=== PATIENT | male | born 1995 | race Caucasian/White ===

== ENCOUNTER 2017-07-17 19:34 | Emergency (ER) | payer OTHER ==
[2017-07-17 19:49] VITALS: RESP 18; TEMP 98.2
--- NOTE | 2017-07-17 20:20 | EDPHY ---
H & P Smoking Status: Smoker current status UNK Time Seen by Provider: 07/17/17 20:12 HPI/ROS: CHIEF COMPLAINT: "I had a panic attack" HISTORY OF PRESENT ILLNESS: 22-year-old male history of intermittent anxiety and panic attacks, waiting to be seen by Psychiatry at the [facility] states that he had a self-described panic attack earlier this evening which has now by and large resolved. He drove himself to the ER. No suicidal homicidal ideation. No alcohol or drug use. PHYSICAL EXAM (Prior to examination, patient consented to physical exam, hands were washed and my usual and customary physical exam procedures followed) 1) GENERAL: Well-developed, well-nourished, alert and oriented. Appears to be in no acute distress. 2) HEAD: Normocephalic 3) HEENT: sclera anicteric 4) LUNGS: Breathing comfortably. Clear bilaterally (Chitra Bates) Constitutional: Initial Vital Signs Temperature (C) 36.8 C 07/17/17 19:46 Heart Rate 103 H 07/17/17 19:46 Respiratory Rate 18 07/17/17 19:46 Blood Pressure 178/99 H 07/17/17 19:46 O2 Sat (%) 97 07/17/17 19:46 O2 Delivery Mode Room Air Allergies/Adverse Reactions: No Known Allergies Allergy (Unverified 07/17/17 19:45) Home Medications: Medication Instructions Recorded LORazepam [Ativan 1 mg (RX)] 1 mg PO Q6 PRN #3 tab 07/17/17 MDM/Departure - MDM Medications Given: Discontinued Medications Lorazepam (Ativan) 1 mg PO EDNOW ONE Stop: 07/17/17 21:12 Last Admin: 07/17/17 21:28 Dose: Not Given ED Course/Re-evaluation: This patient's symptoms have improved without intervention. He drove himself to the ER. I am giving him a prescription for Ativan 1 mg #3 tablets and recommend he follow up with mental health services at the [facility]. he does not meet criteria for an M1 hold. Care of patient under supervision of secondary supervising physician Dr Courtney . ( Chitra Bates Pearl) The patient was evaluated and managed by the Physician Licensed Investment Sales Assistant. My co- signature indicates that I have reviewed this chart and I agree with the findings and plan of care as documented. I am the secondary supervising physician. (Oxana Courtney) - Depart Disposition: Home, Routine, Self-Care Clinical Impression: Anxiety Condition: Good Instructions: Anxiety (ED) Additional Instructions: Return to the ER if you develop new or worsening symptoms, if you develop chest pain, shortness of breath or any other symptoms that concern you Prescriptions: LORazepam [Ativan 1 mg (RX)] 1 mg PO Q6 PRN #3 tab PRN Reason: Anxiety Referrals: Follow-up, with mental health services at the [place] [Other] - As per Instructions
[2017-07-17] MEDS ORDERED: LORazepam 1 MG TAB PO ONE (21:11)
[2017-07-17 21:28] VITALS: BP 129/88; PULSE 75; O2SAT 96
== END 2017-07-17 21:27 | disposition home or self-care (01) ==
DX: F41.9 Anxiety disorder, unspecified (principal)